=== PATIENT | male | born 2000 | race Caucasian/White ===

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

== ENCOUNTER → 2020-03-27 | Outpatient (CLI) | payer SELFPAY | END | disposition home or self-care (01) | LOC: COVID19 13:52 | PROVIDERS: ATTEND Internal Medicine | DX: Z20.822 Contact with and (suspected) exposure to COVID-19 (principal) ==

== ENCOUNTER 2020-07-01 13:46 | Emergency (ER) | payer SELFPAY ==
[~2020-07-01] VITALS: Wt 72.6 kg
[2020-07-01 14:14] LABS: BASO % 0.7 % (0.0-1.0); EOS # 0.3 10*3/uL (0.0-0.4); EOS % 5.7 % (1.0-4.0); HEMATOCRIT 46.2 % (42.0-52.0); LYMPH # 1.2 10*3/uL (1.3-4.4); LYMPH % 25.7 % (27.0-41.0); MEAN CORPUSCULAR HGB 29.5 pg (27.0-31.0); MEAN CORPUSCULAR HGB CONC 33.5 g/dl (33.0-37.0); MEAN PLATELET VOLUME 9.9 fl (9.6-12.3); MONO # 0.4 10*3/uL (0.1-1.0); NEUT # 2.8 10*3/uL (2.3-7.9); NEUT % 59.7 % (47.0-73.0); PLATELET COUNT AUTOMATED 132 10*3/uL (130-400); RED BLOOD COUNT 5.25 10*6/uL (4.50-5.90); RED CELL DISTRI WIDTH 11.9 % (0-14.5); WHITE BLOOD COUNT 4.6 10*3/uL (4.8-10.8)
[2020-07-01 14:31] LABS: ALBUMIN 4.4 gm/dl (3.1-4.5); ALKALINE PHOSPHATASE 105 U/L (45-117); BUN 7 mg/dl (7-24); CHLORIDE 104 mmol/L (98-107); CREATININE 0.85 mg/dL (0.70-1.30); LIPASE 68 U/L (73-393); POTASSIUM 3.6 mmol/L (3.5-5.1); SGOT/AST 12 IU/L (3-35); SGPT/ALT 18 U/L (12-78); SODIUM 138 mmol/L (136-145); TOTAL PROTEIN 7.5 gm/dL (6.4-8.2)
[2020-07-01] MEDS ORDERED: ZOFRAN4 MG PO (14:58)
== END 2020-07-01 15:03 | disposition home or self-care (01) ==
LOC: ED 13:46
PROVIDERS: Physician Assistant
DX: K52.9 Noninfective gastroenteritis and colitis, unspecified (principal)

== ENCOUNTER 2021-04-06 16:24 | Emergency (ER) | payer BC ==
[~2021-04-06] VITALS: Ht 177.8 cm
[~2021-04-06 16:24] MED LIST changes: +ZOFRAN4 MG PO
[2021-04-06] MEDS ORDERED: ZOFRAN4 MG PO (16:51)
== END 2021-04-06 16:58 | disposition home or self-care (01) ==
LOC: ED 16:24
DX: R11.2 Nausea with vomiting, unspecified (principal); Z20.822 Contact with and (suspected) exposure to COVID-19; R51.9 Headache, unspecified; R63.0 Anorexia

== ENCOUNTER 2022-06-09 21:17 | Emergency (ER) | payer BC ==
[~2022-06-09] VITALS: Ht 177.8 cm; Wt 70.3 kg
[2022-06-09] MEDS ORDERED: ONDANSETRON4 MG SL (22:51)
== END 2022-06-09 23:13 | disposition home or self-care (01) ==
LOC: ED 21:17
DX: K52.9 Noninfective gastroenteritis and colitis, unspecified (principal); R11.2 Nausea with vomiting, unspecified; Z98.890 Other specified postprocedural states

== ENCOUNTER 2022-09-12 21:07 | Emergency (ER) | payer BC ==
[~2022-09-12] VITALS: Ht 177.8 cm
[~2022-09-12 21:07] MED LIST changes: +ONDANSETRON4 MG SL
== END 2022-09-12 23:07 | disposition home or self-care (01) ==
LOC: ED 21:07
DX: U07.1 COVID-19 (principal); R11.2 Nausea with vomiting, unspecified; F17.200 Nicotine dependence, unspecified, uncomplicated

== ENCOUNTER 2023-11-24 19:05 | Emergency (ER) | payer BC ==
[~2023-11-24] VITALS: Ht 177.8 cm; Wt 74.8 kg
[2023-11-24] MEDS ORDERED: SODIUM CHLORIDE 0.9% 1,000 ML IV ONE (19:35)
[2023-11-24] MEDS ORDERED: Ketorolac Tromethamine 30 MG/ML VIAL IV ONE (19:35)
[2023-11-24] MEDS ORDERED: diphenhydrAMINE hydrochloride 50 MG/ML VIAL IV ONE (19:35)
[2023-11-24] MEDS ORDERED: Ondansetron Hydrochloride 4 MG/2 ML VIAL IV ONE (19:35)
== END 2023-11-24 21:11 | disposition home or self-care (01) ==
LOC: ED 19:05
DX: R51.9 Headache, unspecified (principal); R11.0 Nausea; Z98.890 Other specified postprocedural states